=== PATIENT | female | born 1985 | race Caucasian/White ===

== ENCOUNTER 2021-09-25 13:01 | Emergency (ER) | payer OTHER ==
[2021-09-25 13:29] VITALS: BP 114/58; PULSE 96; TEMP 98.8; BMI 47.3
[2021-09-25] MEDS ORDERED: SULFAMETHOXAZOLE/TRIMETHOPRIM 800MG/160MG D.S. TABLET PO ONE (14:03)
[2021-09-25 14:14] LABS: EPITHELIAL CELLS FEW /hpf
[2021-09-25] MEDS ORDERED: SULFAMETHOXAZOLE/TRIMETHOPRIM 800MG/160MG D.S. TABLET ONE (14:25)
== END 2021-09-25 14:33 | disposition home or self-care (01) ==
LOC: FER 13:01
DX: N39.0 Urinary tract infection, site not specified (principal)
CPT/HCPCS: 81003; 81015; 87086; 99283-25